=== PATIENT | male | born 1945 | race Caucasian/White ===

== ENCOUNTER → 2018-05-26 | Outpatient (CLI) | payer MEDICARE ==
[~2018-05-26] MED LIST: AMLO5TAB7 PO; ASCO250T2 PO; ASPI-621 PO; ATOR40TA78 PO; CLOP75TA52 PO; IRON PO; LISI40TA PO; METO50TA82 PO; OMEP-110 PO; TAMS-11 PO
== END | disposition home or self-care (01) ==
LOC: STAR 07:54
PROVIDERS: ATTEND Surgery Vascular Surgery
DX: Z02.9 Encounter for administrative examinations, unspecified (principal)

== ENCOUNTER 2018-06-02 05:58 | Day surgery (SDC) | payer MEDICARE ==
[~2018-06-02] VITALS: Ht 188 cm; Wt 104.5 kg
[2018-06-02 07:03] VITALS: BP 148/78
[2018-06-02] MEDS ORDERED: LIDOCAINE-MPF 2%, 2ML ONE (07:03)
[2018-06-02] MEDS ORDERED: NALOXONE 1 MG/ML, 2ML ONE (07:16)
[2018-06-02] MEDS ORDERED: HEPARIN 1,000 UNITS/ML, 10ML ONE (07:16)
[2018-06-02] MEDS ORDERED: NITROGLYCERIN 5 MG/ML, 10ML ONE (07:16)
[2018-06-02] MEDS ORDERED: PROTAMINE SULFATE 10 MG/ML, 25ML ONE (07:16)
[2018-06-02] MEDS ORDERED: MIDAZOLAM 1 MG/ML, 5ML ONE (07:16)
[2018-06-02] MEDS ORDERED: FLUMAZENIL 0.1 MG/1 ML, 5ML ONE (07:16)
[2018-06-02] MEDS ORDERED: FENTANYL PF 100 MCG/2ML ONE (07:16)
[2018-06-02 07:22] LABS: BASOPHILS # (AUTO) 0.06 x10^3/uL (0-0.1); BASOPHILS % (AUTO) 1 % (0-1); EOSINOPHILS # (AUTO) 0.15 x10^3/uL (0-0.4); EOSINOPHILS % (AUTO) 2 % (1-7); LYMPHOCYTES # (AUTO) 1.12 x10^3/uL (1-3.4); LYMPHOCYTES % (AUTO) 16 % (22-44); MD NO; MEAN CORPUSCULAR HEMOGLOBIN 30.8 pg (27.5-34.5); MEAN CORPUSCULAR HGB CONC 33.7 g/dL (33.2-36.2); MEAN CORPUSCULAR VOLUME 91.4 fL (81-97); MEAN PLATELET VOLUME 8.7 fL (7.4-10.4); MONOCYTES # (AUTO) 0.48 x10^3/uL (0.2-0.8); MONOCYTES % (AUTO) 7 % (2-9); NEUTROPHILS # (AUTO) 5.09 x10^3/uL (1.8-6.8); NEUTROPHILS % (AUTO) 74 % (42-75); PLATELET COUNT 158 x10^3/uL (130-400); RED BLOOD COUNT 4.35 x10^6/uL (4.38-5.82); RED CELL DISTRIBUTION WIDTH 15.7 % (9.4-14.8)
[2018-06-02 07:27] LABS: ANION GAP 9 mmol/L (5-15); CALCIUM 8.1 mg/dL (8.5-10.1); CHLORIDE 112 mmol/L (98-107); CREATININE 0.92 mg/dL (0.7-1.3)
[2018-06-02] MEDS ORDERED: CLOPIDOGREL 75 MG TABLET ONE (08:49)
[2018-06-02] MEDS ORDERED: CLOPIDOGREL 75 MG TABLET PO ONE (09:00)
[2018-06-02] MEDS ORDERED: VISIPAQUE 270 MG/ML, 150ML BOTTLE ONE (09:19)
== END 2018-06-02 11:40 | disposition home or self-care (01) ==
LOC: OUT 05:58
PROVIDERS: ATTEND Surgery Vascular Surgery
DX: I70.213 Atherosclerosis of native arteries of extremities with intermittent claudication, bilateral legs (principal); I10 Essential (primary) hypertension; F17.210 Nicotine dependence, cigarettes, uncomplicated; F19.90 Other psychoactive substance use, unspecified, uncomplicated; Z98.890 Other specified postprocedural states
CPT/HCPCS: 36415; 37226; 75630; 76937; 80048; 85025; 99156; 99157; C1725; C1751; C1760; C1769; C1876; C1894; J1644; J2250; J3010; J3490; Q9966; J2720; J2310